=== PATIENT | male | born 1930 | race African-American/Black ===

== ENCOUNTER 2016-10-28 18:11 | Inpatient (IN) | payer OTHER ==
[~2016-10-28] VITALS: Ht 175.3 cm; Wt 60.8 kg
[~2016-10-28 18:11] MED LIST: DOCU-150 PO; LOVA20TA2 PO; NIFE60TA64 PO; TAMS0.4C31 PO
[2016-10-28] MEDS ORDERED: ONDANSETRON HCL 4MG/2ML VIAL IV STA (19:21)
[2016-10-28 19:44] LABS: HEMATOCRIT. 21.9 % (42.0-52.0); HEMOGLOBIN. 7.4 g/dL (14.0-18.0); MEAN CORPUSCULAR HEMOGLOBIN 28.4 pg (28.0-32.0); MEAN CORPUSCULAR HGB CONC 33.5 g/dL (31.0-37.0); MEAN CORPUSCULAR VOLUME 84.7 fL (80.0-94.0); MEAN PLATELET VOLUME 6.8 fl (7.4-10.4); PLATELET 359 x1000/uL (130-400); RED BLOOD CELL COUNT 2.59 mill/uL (4.7-6.1); RED CELL DISTRIBUTION WIDTH 14.6 % (11.6-14.6); WHITE BLOOD COUNT 12.5 x1000/uL (4.5-11.0)
[2016-10-28 19:45] LABS: DIFFERENTIAL COMMENT 1
[2016-10-28] MEDS ORDERED: LEVOFLOXACIN 750MG PREMIX 150 ML IV ONE (19:45)
[2016-10-28] MEDS ORDERED: ACETAMINOPHEN 325MG TABLET PO ONE (19:45)
[2016-10-28] MEDS ORDERED: VANCOMYCIN 1 G PREMIX 200 ML IV ONE (19:45)
[2016-10-28 19:50] LABS: INR 1.1; PARTIAL THROMBOPLASTIN TIME 22.6 sec (24.0-34.0); PROTHROMBIN TIME 11.3 sec
[2016-10-28 19:57] LABS: PLATELET ESTIMATE NORMAL
[2016-10-28 20:01] LABS: ALANINE AMINOTRANSFERASE 11 IU/L (13-61); ALBUMIN 2.3 g/dL (3.4-5.0); ANION GAP 14; CARBON DIOXIDE 31 mEq/L (21-32); CHLORIDE 98 mEq/L (98-107); INDEX HEMOLYSI 1 (1-3); INDEX ICTERIC 1 (1-4); INDEX LIPEMIC 1 (1-3); LIPASE 373 IU/L (73-393); NT PRO B-TYPE NATRIURETIC PEP 9308 pg/mL (5-125); UREA NITROGEN BLOOD 8 mg/dL (7-21); eGFR 33 mL/min (>60)
[2016-10-28 20:10] LABS: THYROID STIMULATING HORMONE 0.54 uIU/mL (0.36-3.74)
[2016-10-28 20:14] LABS: TROPONIN I 0.66 ng/mL (0.00-0.04)
[2016-10-28] MEDS ORDERED: ONDANSETRON HCL 4MG/2ML VIAL IV PRN (23:45)
[2016-10-29] VITALS (8 sets, daily range): BP systolic 108–129; BP diastolic 52–86
[2016-10-29] MEDS ORDERED: ACETAMINOPHEN 325MG TABLET PO PRN (06:45)
[2016-10-29] MEDS ORDERED: ACETAMINOPHEN 650MG/20.3ML UDC PO PRN (07:00)
[2016-10-29] MEDS ORDERED: NIFEDIPINE XL 60MG TAB PO SCH (09:00)
[2016-10-29] MEDS ORDERED: ENOXAPARIN 30MG/0.3ML SYR SUBCUT SCH (09:00)
[2016-10-29] MEDS ORDERED: LEVOFLOXACIN 250MG PREMIX 50 ML IV SCH ×2 (09:00→11:00)
[2016-10-29] MEDS ORDERED: TAMSULOSIN HCL 0.4MG SR CAPSULE PO SCH (09:00)
[2016-10-29 09:39] LABS: MEAN CORPUSCULAR HEMOGLOBIN 27.5 pg (28.0-32.0); MEAN CORPUSCULAR HGB CONC 32.4 g/dL (31.0-37.0); MEAN CORPUSCULAR VOLUME 84.8 fL (80.0-94.0); MEAN PLATELET VOLUME 7.2 fl (7.4-10.4); PLATELET 349 x1000/uL (130-400); RED BLOOD CELL COUNT 2.45 mill/uL (4.7-6.1); RED CELL DISTRIBUTION WIDTH 14.8 % (11.6-14.6); WHITE BLOOD COUNT 12.1 x1000/uL (4.5-11.0)
[2016-10-29 09:48] LABS: DIFFERENTIAL COMMENT 1
[2016-10-29 09:51] LABS: HEMATOCRIT. 20.7 % (42.0-52.0); HEMOGLOBIN. 6.7 g/dL (14.0-18.0)
[2016-10-29 10:08] LABS: CALCIUM 7.7 mg/dL (8.5-10.1); MAGNESIUM 1.9 mg/dL (1.8-2.4); PHOSPHORUS 3.4 mg/dL (2.5-4.9)
[2016-10-29 10:17] LABS: TROPONIN I 2.5 ng/mL (0.00-0.04)
[2016-10-29 10:20] LABS: PLATELET ESTIMATE NORMAL; ROULEAUX 1+
[2016-10-29] MEDS ORDERED: ASPIRIN 81MG TABLET PO SCH (11:45)
[2016-10-29 15:22] LABS: CREATINE KINASE MB FRACTION 1.8 ng/mL (0.5-3.6)
[2016-10-29] MEDS ORDERED: VANCOMYCIN 500 MG PREMIX 100 ML IV NR (16:00)
[2016-10-29 16:10] LABS: TROPONIN I 2.2 ng/mL (0.00-0.04)
[2016-10-29] MEDS ORDERED: ASPI325T2 PO (16:22)
[2016-10-29] MEDS ORDERED: PANT40TA4 PO (16:22)
[2016-10-29] MEDS ORDERED: HYDR-4133 PO (16:22)
[2016-10-29] MEDS ORDERED: CARV6.2548 PO (16:22)
[2016-10-29] MEDS ORDERED: FERR-63 PO (16:22)
[2016-10-29] MEDS ORDERED: SEVE800T8 PO (16:22)
[2016-10-29] MEDS ORDERED: LOSA50TA20 PO (16:22)
[2016-10-29] MEDS ORDERED: LISI-186 PO (16:22)
[2016-10-29] MEDS ORDERED: ERGO500043 PO (16:22)
[2016-10-29] MEDS ORDERED: DOXA2TAB2 PO (16:22)
[2016-10-29] MEDS ORDERED: FURO80TA3 PO (16:22)
[2016-10-29] MEDS ORDERED: SODI650T PO (16:22)
[2016-10-29] MEDS ORDERED: PANTOPRAZOLE 40MG DR TABLET PO SCH (16:30)
[2016-10-29] MEDS ORDERED: SEVELAMER CARBONATE 800 MG TABLET PO SCH (17:50)
[2016-10-29] MEDS ORDERED: ERGOCALCIFEROL 50000UNITS CAPSULE PO SCH (18:00)
[2016-10-29] MEDS ORDERED: CARVEDILOL 6.25 MG TABLET PO SCH (21:00)
[2016-10-29] MEDS ORDERED: DOXAZOSIN MESYLATE 2MG TABLET PO SCH (21:00)
[2016-10-29] MEDS ORDERED: ATORVASTATIN CALCIUM 20MG TABLET PO SCH (21:00)
[2016-10-29] MEDS ORDERED: VANCOMYCIN 750 MG PREMIX 150 ML IV SCH (23:00)
[2016-10-30] MEDS ORDERED: ASPIRIN 325MG EC TABLET PO SCH (09:00)
[2016-10-30] MEDS ORDERED: LOSARTAN POTASSIUM 50 MG TABLET PO SCH (09:00)
[2016-10-30] MEDS ORDERED: FOLIC ACID/VITAMIN B COMP W-C TABLET PO SCH (09:00)
[2016-10-30] MEDS ORDERED: FUROSEMIDE 80MG TABLET PO SCH (09:00)
[2016-10-30] MEDS ORDERED: LEVOFLOXACIN 250MG PREMIX 50 ML IV SCH (21:00)
[2016-10-31] MEDS ORDERED: LEVOFLOXACIN 250MG PREMIX 50 ML IV SCH (11:00)
== END 2016-10-29 23:05 | disposition short-term general hospital (02) | DRG 314 ==
LOC: ER 18:11 → 6WST 22:11
PROVIDERS: ADMIT Internal Medicine Critical Care Medicine; ATTEND Internal Medicine Critical Care Medicine
PROC: 05PYX3Z Removal of Infusion Device from Upper Vein, External Approach (ICD-10-PCS; principal; 2016-10-29)
PROC: 30233N1 Transfusion of Nonautologous Red Blood Cells into Peripheral Vein, Percutaneous Approach (ICD-10-PCS; 2016-10-29)
DX: T82.7XXA Infection and inflammatory reaction due to other cardiac and vascular devices, implants and grafts, initial encounter (principal); A41.9 Sepsis, unspecified organism; N18.6 End stage renal disease; I13.2 Hypertensive heart and chronic kidney disease with heart failure and with stage 5 chronic kidney disease, or end stage renal disease; N25.81 Secondary hyperparathyroidism of renal origin; Q61.2 Polycystic kidney, adult type; E78.5 Hyperlipidemia, unspecified; Y83.8 Other surgical procedures as the cause of abnormal reaction of the patient, or of later complication, without mention of misadventure at the time of the procedure; R33.8 Other retention of urine; I25.10 Atherosclerotic heart disease of native coronary artery without angina pectoris; E11.22 Type 2 diabetes mellitus with diabetic chronic kidney disease; D64.9 Anemia, unspecified; E83.39 Other disorders of phosphorus metabolism; I25.82 Chronic total occlusion of coronary artery; I50.9 Heart failure, unspecified; N40.1 Benign prostatic hyperplasia with lower urinary tract symptoms; Z79.82 Long term (current) use of aspirin; Z79.899 Other long term (current) drug therapy; Z80.42 Family history of malignant neoplasm of prostate; Z88.0 Allergy status to penicillin; Z82.49 Family history of ischemic heart disease and other diseases of the circulatory system; Z87.891 Personal history of nicotine dependence; Z85.038 Personal history of other malignant neoplasm of large intestine; Z93.3 Colostomy status; I25.2 Old myocardial infarction; Z90.49 Acquired absence of other specified parts of digestive tract; Z99.2 Dependence on renal dialysis; Z49.01 Encounter for fitting and adjustment of extracorporeal dialysis catheter
CPT/HCPCS: 36415; 36589; 71010; 80048; 80053; 82553; 83605; 83690; 83735; 83880; 84100; 84443; 84484; 85025; 85610; 85730; 86850; 86900; 86920; 87040; 87070; 93005; 96365; 96366; 96367; 96375; 99285; J1650; J1956; J2405; J3370; J7040; J7050; P9016